=== PATIENT | female | born 1995 | race Caucasian/White ===

== ENCOUNTER → 2021-02-07 08:00 | Outpatient (CLI) | payer SELFPAY ==
[2021-02-07 09:56] LABS: Hematocrit 38.3 % (37-47); Hemoglobin 12.9 g/dL (12.0-15.0); Mean Corp Hgb Conc 33.7 g/dL (32-36); Mean Corpuscular Hgb 31.2 pg (27.0-32.0); Mean Corpuscular Volume 92.7 fL (81-99); Mean Platelet Vol. 11.2 fl (6.2-12.0); Platelet Count 182 K/mm3 (150-450); RBC Distribution Width CV 12.4 % (11.6-14.6); RBC Distribution Width SD 42.7 fl (35.1-43.9); Red Blood Count 4.13 M/mm3 (4.2-5.4); White Blood Count 5.6 K/mm3 (4.4-11.0)
[2021-02-07 10:22] LABS: AST(SGOT) 12 U/L (15-37); Alanine Aminotransfer ALT/SGPT 18 U/L (13-56); Albumin, Serum 3.4 g/dL (3.2-5.0); Alkaline Phosphatase 65 U/L (45-117); Anion Gap 8 (5-15); BUN 13 mg/dL (7-18); BUN/Creat Ratio 19.6 RATIO (10-20); Calcium,Total 8.7 mg/dL (8.5-10.1); Chloride 107 mmol/L (98-107); Creatinine, Serum 0.66 mg/dL (0.55-1.02); EST Glomerular Filtration Rate 113 mL/min (>60); Est Glom Filt Rate - Afr Amer 137 mL/min (>60); Globulin 3.3 g/dL (2.2-4.2); Glucose 90 mg/dL (74-106); Magnesium 1.9 mg/dL (1.6-2.6); Potassium 3.6 mmol/L (3.5-5.1); Protein, Total 6.7 g/dL (6.4-8.2); Sodium Level 140 mmol/L (136-145)
[2021-02-09 15:50] LABS: Gastrin, Serum 23 pg/mL (0-115)
== END ==
PROVIDERS: PCP Family Medicine; Referring Provider Family Medicine; Visit Provider Family Medicine
DX: K27.9 Peptic ulcer, site unspecified, unspecified as acute or chronic, without hemorrhage or perforation (principal); R19.7 Diarrhea, unspecified
CPT/HCPCS: 36415; 80053; 82941; 83735; 85027; 87493; 87506

== ENCOUNTER 2021-03-25 08:56 | Emergency (ER) | payer BC, SELFPAY ==
[2021-03-25 08:57] VITALS: BP 102/75; PULSE 105; RESP 18; TEMP 35.3; O2SAT 100; BMI 20.1
--- NOTE | 2021-03-25 09:29 | RAD_ITS ---
INDICATION: cough EXAMINATION/TECHNIQUE: X-RAY - XR Chest 1 View COMPARISON: None. FINDINGS: LINES/DEVICES: None. Cardiomediastinal silhouette is within normal limits. No focal consolidations, effusions, or sizable pneumothorax. Osseous structures are grossly intact. RAD/Chest 1 View (Portable) IMPRESSION: No acute cardiopulmonary process. Electronically Signed: Rick Houston MD at 9:39 EST Tel , Service support ,
--- NOTE | 2021-03-25 09:29 | EX.ED.DYSGE1 ---
HPI History of Present Illness Chief Complaint: Chest Pain Informant: patient Narrative Narrative: 25-year-old female presents the emergency room with right-sided chest pain. Patient states that she was having a sinus infection and started draining when it started draining few days ago she began to cough. She states that she has been coughing quite a bit about 4 days ago developed the pain along the lower right ribs that wraps around the ribs to the back. She notes pain with movement and pain with touch. She notes she has to breathe shallow because it hurts. Patient denies any rash in the area PFSH PFS Medical History no medical history no medical history Allergy/AdvReac Type Severity Reaction Status Date / Time mold Allergy NEEDS Verified 03/25/21 09:00 FOLLOW-UP Social History (Updated 03/25/21 @ 09:[address] Aaron Pelletier, DO) Smoking Status: Current some day smoker tobacco type: cigarettes substance use type: does not use ROS ROS ED Constitutional Constitutional ED: Denies chills, fever(s) or weight loss Eyes Eyes: Denies change in vision or diplopia ENT ENT ED: Reports rhinorrhea; Denies ear pain or sore throat Cardiovascular Cardiovascular: Reports chest pain; Denies orthopnea, palpitations or racing heartbeat Respiratory/Chest Respiratory/Chest: Reports cough and sputum; Denies dyspnea or orthopnea Gastrointestinal Gastrointestinal: Denies abdominal pain, diarrhea, nausea or vomiting Genitourinary Genitourinary ED: Denies dysuria, hematuria or urinary frequency Musculoskeletal Musculoskeletal: Denies arthralgias or myalgias Integumentary Denies abscess or rash Neurologic Neurologic: Denies headache(s) or weakness Psychiatric Psychiatric: Denies anxiety, depression, suicidal ideation or suicidal thoughts Endocrine Endocrinology: Denies polydipsia, polyphagia or polyuria Allergic/Immunologic Allergic/Immunologic ED: Denies mouth swelling, tongue swelling or urticaria EXAM Physical Exam Const Vital Signs: 03/25/21 08:57 Temperature 95.5 F L Temperature Source Temporal Pulse Rate 105 H Respiratory Rate 18 Blood Pressure 102/75 Blood Pressure Mean 84 Pulse Ox 100 Oxygen Delivery Method Room Air Positive well nourished and well developed General Appearance ED: well developed HEENT Reports normocephalic, head/scalp atraumatic, TM's clear and moist mucous membranes Negative for trauma Tympanic Membrane ED: Yes TM's clear Eyes PERRL and EOMs intact bilaterally Neck no lymphadenopathy, supple and no JVD Chest Wall Chest Narrative: Patient has focal tenderness to palpation along the lower mid ribs both anteriorly midaxillary and posteriorly. Painful range of motion. Resp normal respiratory effort and clear to auscultation bilaterally Cardio regular rate, regular rhythm and no murmurs GI normal to inspection, nondistended, normoactive bowel sounds and non-tender Palpation: soft Back/Spine no CVA tenderness and normal ROM Extremity normal to inspection General Extremety ED: Negative for edema General Extremity: Negative for edema Neuro oriented x3 and CN's II-XII intact bilaterally Sensorium / Orientation: alert Motor Exam: strength 5/5 throughout Psych mental status grossly normal Mood & Affect: Negative for depressed or tearful Skin no rashes or lesions noted and no wounds MDM MDM MDM Narrative Medical decision making narrative: My interpretation of the chest x-ray is no acute process. Patient clinically has a chest wall strain. We talked about using a throat pill to stabilize the chest as well as anti-inflammatories. Return if worsening or concerns Radiography Diagnostic Testing: Clinical Impression(s) from Imaging Studies Chest X-Ray 03/25/21 09:29 IMPRESSION: No acute cardiopulmonary process. Electronically Signed: Rick Houston MD at 9:39 EST Tel , Service support , Discharge Plan Triage Chief Complaint: Chest Pain ED Provider: Aaron Pelletier Dx/Rx/DC Orders Clinical Impression: Cough, Strain of chest wall Instructions: ED Strain Chest Wall Primary Care Provider: Forrest Babin Referrals: Forrest Babin MD [Primary Care Provider] - As Needed Activity Restrictions/Additional Instructions: Ibuprofen 600 mg every 6 hours with food. As discussed use a throw pillow to help stabilize the chest wall. Disposition Disposition: Home, Self Care
== END 2021-03-25 10:11 | disposition home or self-care (01) ==
PROVIDERS: Emergency Provider Emergency Medicine; PCP Family Medicine
DX: R05.9 Cough, unspecified (principal); R07.81 Pleurodynia; S29.011A Strain of muscle and tendon of front wall of thorax, initial encounter; X58.XXXA Exposure to other specified factors, initial encounter; Y93.9 Activity, unspecified; Y92.9 Unspecified place or not applicable; Y99.9 Unspecified external cause status; F17.210 Nicotine dependence, cigarettes, uncomplicated
CPT/HCPCS: 71045; 99282

== ENCOUNTER 2024-11-04 10:29 | Outpatient (CLI) | payer BC, SELFPAY ==
[2024-11-04 13:16] LABS: Ferritin 89 ng/mL (22-378); Iron 78 ug/dL (50-170); Iron Binding Capacity,Total 267 ug/dL (250-450); Iron Binding Capacity,Unsat 189 ug/dL (228-428)
[2024-11-05 04:07] LABS: Transferrin 237 mg/dL (192-364)
== END 2024-11-04 23:59 | disposition home or self-care (01) ==
LOC: MFPLAB 10:33
PROVIDERS: Family Medicine; PCP Family Medicine; Referring Provider Family Medicine; Visit Provider Family Medicine
DX: D64.9 Anemia, unspecified (principal); Z83.49 Family history of other endocrine, nutritional and metabolic diseases
CPT/HCPCS: 36415; 82728; 83540; 83550; 84466